=== PATIENT | female | born 1965 | race African-American/Black ===

== ENCOUNTER 2017-08-23 18:27 | Observation (INO) | payer OTHER ==
[2017-08-23 19:14] LABS: #Eosinphils 0.1 thou/uL (0.0-0.7); #Lymphocytes 2.8 thou/uL (1.20-3.40); #Monocytes 0.4 thou/uL (0.11-0.59); #Neutrophils 2.6 thou/uL (1.40-6.50); %Basophils 0.8 % (0.0-1.0); %Lymphocytes 47.5 % (21.0-51.0); %Monocytes 6.3 % (0.0-10.0); Hematocrit 44.7 % (36.0-47.0); Mean Platelet Volume 6.7 fL (7.4-10.4); Red Blood Cell (RBC) Count 4.49 mill/uL (4.20-5.40); White Blood Cell (WBC) Count 5.9 thou/uL (4.8-10.8)
[2017-08-23 19:34] LABS: ALT (SGPT) 10 U/L (8-55); AST (SGOT) 11 U/L (5-34); Alkaline Phosphatase 86 U/L (40-150); Anion Gap 14 mmol/L (10-20); BUN (Urea Nitrogen) 13 mg/dL (9.8-20.1); Bilirubin, Total 0.4 mg/dL (0.2-1.2); CK (CPK) 64 U/L (29-168); Calc. Creatinine Clearance 0 mL/min (70-130); Calcium 9.5 mg/dL (7.8-10.44); Carbon Dioxide 23 mmol/L (22-29); Chloride 106 mmol/L (98-107); Estimated GFR-MDRD 90; Globulin 3.5 g/dL (2.4-3.5); Lipase 17 U/L (8-78); Protein, Total 7.3 g/dL (6.0-8.3)
[2017-08-23 19:38] LABS: Troponin I Less than 0.010 ng/mL (< 0.028)
--- NOTE | 2017-08-23 19:44 | RAD ---
PORTABLE UPRIGHT FRONTAL CHEST RADIOGRAPH: Date: 08/23/17 COMPARISON: 04/18/15. HISTORY: Chest, back, and arm pain. FINDINGS: Lungs are clear. Heart and mediastinal contours unremarkable. IMPRESSION: No acute findings. POS: [facility]
[2017-08-23] MEDS ORDERED: Ketorolac Tromethamine 30 MG/ML VIAL ONE (21:26)
--- NOTE | 2017-08-23 21:42 | RAD ---
3 VIEWS RIGHT SHOULDER: Date: 08/23/17 COMPARISON: 06/03/17. HISTORY: Pain. FINDINGS: Subcentimeter calcific densities are seen adjacent to the greater tuberosity, which may signify calci fic tendinosis or the sequelae of prior trauma. There is degenerative change involving the right AC j oint. No acute fracture or dislocation is seen. Findings are stable when compared to 06/03/17. IMPRESSION: Chronic findings as described above. No acute osseous abnormality noted. POS: [facility]
[2017-08-23 22:20] LABS: Troponin I Less than 0.010 ng/mL (< 0.028)
[2017-08-23] MEDS ORDERED: Acetaminophen 325 MG TAB PO PRN (23:20)
[2017-08-23 23:26] VITALS: BMI 35.7
[2017-08-23] MEDS ORDERED: Aspirin 325 MG TAB PO SCH (23:30)
[2017-08-23] MEDS ORDERED: Ketorolac Tromethamine 30 MG/ML VIAL IVP PRN (23:36)
[2017-08-23] MEDS ORDERED: HYDROcodone/Acetaminophen 5/325 mg Tablet PO PRN (23:36)
[2017-08-23] MEDS ORDERED: Cyclobenzaprine 10 MG TAB PO PRN (23:36)
[2017-08-23] MEDS ORDERED: hydrALAZINE 20 MG/ML VIAL SLOW IVP PRN (23:36)
[2017-08-24 01:25] LABS: Troponin I Less than 0.010 ng/mL (< 0.028)
[2017-08-24] MEDS ORDERED: Acetaminophen 325 MG TAB PO PRN (01:56)
[2017-08-24] MEDS ORDERED: Ondansetron HCl/PF 4 MG/2 ML Vial IVP PRN (01:56)
[2017-08-24] MEDS ORDERED: Ondansetron ODT 4 MG TAB PO PRN (01:56)
[2017-08-24] MEDS ORDERED: Milk Of Magnesia 30 ML UDCUP PO PRN (01:56)
[2017-08-24] MEDS ORDERED: Senokot 8.6 MG TAB PO PRN (01:56)
[2017-08-24] MEDS ORDERED: Nitroglycerin 0.4 MG TAB (25 Tab Bottle) PO PRN (01:56)
[2017-08-24] MEDS ORDERED: Labetalol HCl 100 MG/20 ML VIAL SLOW IVP PRN (01:59)
--- NOTE | 2017-08-24 03:29 | HP ---
DATE OF ADMISSION: 08/23/2017 The patient was seen and examined on 08/23/2017. PRIMARY CARE PHYSICIAN: Naima Santoyo. CHIEF COMPLAINT: Chest discomfort with right shoulder pain. HISTORY OF PRESENT ILLNESS: The patient is a 52-year-old -[place] female with ongoing tobacc o dependence, presented to the emergency room with chest discomfort. 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 Earlier today, patient had sudden onset of left- sided chest pain radiating to her right shoulder. The pain was squeezing pressure-like, associated w ith lightheadedness. At the same time, she started developing right shoulder pain that was moderate to severe in intensity, worse with movement. She denies any vomiting, diaphoresis, loss of conscious ness, heartburn, or dyspepsia. She had some cough without significant production. In the emergency room, initial vital signs showed temperature 98, respirations 20, pulse of 88, blood pressure 138/86 with O2 saturation 98% on room air. Her EKG showed sinus rhythm with nonspecific ST -T wave changes. She received Toradol in the emergency room. She continues to have significant righ t shoulder pain. Her chest discomfort has somewhat improved. PAST MEDICAL HISTORY: Reviewed with the patient and none. PAST SURGICAL HISTORY: Reviewed with the patient and none. ALLERGIES: No known drug allergies. HOME MEDICATIONS: Reviewed with the patient and none. SOCIAL HISTORY: The patient smokes up to half a pack a day. Denies any alcohol or drug use. FAMILY HISTORY: The patient cannot recall any heart disease in her family. REVIEW OF SYSTEMS: The following complete review of systems was negative, unless otherwise mentioned in the HPI or below: Constitutional: Weight loss or gain, ability to conduct usual activities. Skin: Rash, itching. Eyes: Double vision, pain. ENT/Mouth: Nose bleeding, neck stiffness, pain, tenderness. Cardiovascular: Palpitations, dyspnea on exertion, orthopnea. Respiratory: Shortness of breath, wheezing, cough, hemoptysis, fever or night sweats. Gastrointestinal: Poor appetite, abdominal pain, heartburn, nausea, vomiting, constipation, or diarr hea. Genitourinary: Urgency, frequency, dysuria, nocturia. Musculoskeletal: Pain, swelling. Neurologic/Psychiatric: Anxiety, depression. Allergy/Immunologic: Skin rash, bleeding tendency. PHYSICAL EXAMINATION: VITAL SIGNS: As discussed above. GENERAL: A 52-year-old female in mild to moderate distress due to significant shoulder more than casey st pain. HEENT: Head atraumatic, normocephalic. Sclerae are anicteric. Moist mucous membranes. No oral les ion. NECK: Supple, no JVD appreciated. No carotid bruit. LUNGS: Clear to auscultation bilaterally. No wheezing or rales. HEART: S1, S2 present. Regular rate and rhythm. There was some questionable reproducible chest wal l tenderness. The right shoulder was tender on palpation. No significant joint swelling noted. The pain was worse on movement. ABDOMEN: Soft, nontender, bowel sounds present. EXTREMITIES: No edema or calf tenderness. NEUROLOGIC: Grossly nonfocal, moves all four extremities. PSYCHIATRY: Alert, awake, oriented x3. SKIN: Warm and dry. LYMPH NODES: No palpable lymph nodes in the neck. PERIPHERAL VASCULAR: Radial pulses palpable bilaterally. MUSCULOSKELETAL: No joint swelling or tenderness other than mentioned above. LABORATORY FINDINGS: CBC showed WBC 5.9 with hemoglobin 15.2. MCV was 99.7 with MCH 33.9. Chemistr y showed sodium 139, potassium 3.8, chloride 106, bicarbonate 23, BUN 13, creatinine 0.8. Troponins were normal. BNP 14.2. Chest x-ray by my review was negative for infiltrate. Shoulder x-ray showed some degenerative changes involving the right AC joint. EKG by my review as discussed above. IMPRESSION AND PLAN: 1. Chest discomfort, rule out acute coronary syndrome. Her symptoms are concerning for acute france ry syndrome. However, due to significant shoulder pain, patient is declining a stress test at this t jason. We will get an echocardiogram. Her serial cardiac enzymes have been negative. She was advised to follow up with Cardiology as outpatient for possible stress test. 2. Ongoing tobacco abuse. The patient was extensively counseled to quit smoking. 3. Obesity with a BMI 35.7. Lifestyle modification was emphasized. 4. Right shoulder pain, probably musculoskeletal. 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 Orthopedic will be consulted. We will add muscle relaxants and nonsteroidal anti-inflammatory dr kang. We will also add H2 blockers. 5. Chronic kidney disease stage 2. 6. Macrocytosis. The patient was advised to start multivitamins. Folic acid and vitamin B12, check as outpatient is recommended. Primary care physician advised to follow. Plan of care was discussed with the patient in detail. She stated understanding.
--- NOTE | 2017-08-24 07:13 | PDOC.EVN ---
Event Note - Event Note Event Note: I d/w Dr Holley who agrees with NSAIDS/muscle relaxants for now. Outpt follow up for possible MRI if symptoms persists.
[2017-08-24] MEDS ORDERED: Aspirin 81 mg Enteric Coated Tablet PO SCH (09:00)
[2017-08-24] MEDS ORDERED: Aspirin 325 MG TAB PO SCH (09:00)
[2017-08-24] MEDS ORDERED: Famotidine 20 MG TAB PO SCH (09:00)
[2017-08-24] MEDS ORDERED: Docusate 100 MG CAP PO SCH (09:00)
[2017-08-24 11:37] VITALS: BP 102/60; TEMP 97.9
--- NOTE | 2017-08-24 14:17 | DIS ---
DATE OF ADMISSION: 08/23/2017 DATE OF DISCHARGE: 08/24/2017 DISCHARGE DIAGNOSES: 1. Right shoulder pain, likely rotator cuff strain. 2. Tobacco use. CONSULTATIONS: None. PERTINENT LABORATORY DATA AND X-RAY FINDINGS: Complete metabolic profile within normal limits. Trop onin I negative x3. BNP 14.2, total cholesterol 147, triglycerides 105, HDL 43, LDL 83, lipase 17. CBC showed a white blood cell count of 5.9, hemoglobin 15, hematocrit 45, MCV 99.7, platelet count 35 5. Portable chest x-ray dated 08/23/2017 showed no acute cardiopulmonary process. Three views of th e right shoulder dated 08/23/2017 showed chronic changes without acute process. HOSPITAL COURSE: Patient was placed on observation status on the telemetry unit after initially pres enting with questionable chest discomfort and right shoulder pain. Clinically, patient with limited mobility of the right shoulder girdle worse with movement or range of motion testing. Radiographs of the right shoulder showed mild chronic degenerative changes without acute process. The patient was given pain control with [place] and Flexeril with mild relief of her symptoms. No current evidence to suggest acute coronary syndrome or cardiac etiology of shoulder discomfort. Current recommendations are for outpatient followup and potential orthopedic evaluation if symptoms persist. Overall, the ady mcgee remained clinically stable throughout the hospital course and ready for discharge on 08/24/2017 . DISCHARGE MEDICATIONS: Ibuprofen 800 mg 1 tab p.o. t.i.d. p.r.n. pain, #30. FOLLOWUP: Patient will follow up with her primary care provider at [facility] withdaly n 7 days of discharge. CONDITION ON DISCHARGE: Stable. ACTIVITY: Ad vanessa. DIET: Heart healthy. CODE STATUS: FULL. DISPOSITION: Home, 08/24/2017.
== END 2017-08-24 15:21 | disposition home or self-care (01) ==
LOC: ERS 18:27 → 2SW 21:32
PROVIDERS: ADMIT Internal Medicine; ATTEND Internal Medicine
DX: M25.511 Pain in right shoulder (principal); F17.210 Nicotine dependence, cigarettes, uncomplicated; R07.89 Other chest pain; N18.2 Chronic kidney disease, stage 2 (mild); D75.89 Other specified diseases of blood and blood-forming organs; E66.9 Obesity, unspecified; Z68.35 Body mass index [BMI] 35.0-35.9, adult
CPT/HCPCS: 36415; 71010; 80053; 80061; 82550; 82553; 83690; 83880; 84484; 85025; 93005; 93306; 96374; G0378; J1885

== ENCOUNTER 2018-10-04 16:07 | Emergency (ER) | payer OTHER ==
[2018-10-04 16:49] LABS: #Eosinphils 0.3 thou/uL (0.0-0.7); #Lymphocytes 0.8 thou/uL (1.20-3.40); #Monocytes 0.4 thou/uL (0.11-0.59); #Neutrophils 5.6 thou/uL (1.40-6.50); %Basophils 0.2 % (0.0-1.0); %Eosinophils 3.6 % (0.0-10.0); %Monocytes 5.5 % (0.0-10.0); %Neutrophils 79.7 % (42.0-75.0); Hemoglobin 16.1 g/dL (12.0-16.0); Mean Corpuscular HGB CONC 32.7 g/dL (32.0-36.0); Mean Corpuscular Hemoglobin 32.2 pg (27.0-31.0); Mean Corpuscular Volume 98.6 fL (78.0-98.0); Mean Platelet Volume 7.3 fL (7.4-10.4); Platelet Count 288 thou/uL (130-400); RBC Distribution Width 11.5 % (11.5-14.5); White Blood Cell (WBC) Count 7.1 thou/uL (4.8-10.8)
[2018-10-04 17:00] LABS: ALT (SGPT) 13 U/L (8-55); AST (SGOT) 13 U/L (5-34); Albumin 4.4 g/dL (3.5-5.0); Alkaline Phosphatase 91 U/L (40-150); Anion Gap 14 mmol/L (10-20); BUN (Urea Nitrogen) 12 mg/dL (9.8-20.1); Bilirubin, Total 0.9 mg/dL (0.2-1.2); Calc. Creatinine Clearance 0 mL/min (70-130); Calcium 10.1 mg/dL (7.8-10.44); Carbon Dioxide 23 mmol/L (22-29); Chloride 106 mmol/L (98-107); Estimated GFR-MDRD 82; Globulin 3.5 g/dL (2.4-3.5); Glucose 98 mg/dL (70-105); Lipase 13 U/L (8-78); Protein, Total 7.9 g/dL (6.0-8.3); Sodium 139 mmol/L (136-145)
[2018-10-04 18:40] LABS: Bilirubin Small (Negative); Blood, Urine Trace (Negative); Clarity CLEAR (Clear); Glucose, Urine (Dipstick) Negative (Negative); Leukocyte Negative (Negative); Nitrite Negative (Negative); Protein, Urine (Dipstick) Negative (Neg-Trace); Specific Gravity, Urine 1.031 (1.002-1.036); Urobilinogen 0.2 mg/dL (0.2-1.0)
[2018-10-04 18:43] LABS: Hyaline Casts/LPF 0-3 HYALINE CAST LPF (0-3 Hyaline); Pathc Cast-AUWi Flag 0.29 (0-2.49); WBC/HPF 0-3 HPF (0-3)
[2018-10-04 18:58] LABS: Bacteria/HPF 1+ HPF (None Seen); RBC/HPF 0-3 HPF (0-3)
[2018-10-04] MEDS ORDERED: Ketorolac Tromethamine 30 MG/ML VIAL ONE (19:14)
[2018-10-04] MEDS ORDERED: Ondansetron PF 4 MG/2 ML Vial ONE (19:14)
== END 2018-10-04 21:15 | disposition home or self-care (01) ==
LOC: ERS 16:07
DX: E86.0 Dehydration (principal); F17.210 Nicotine dependence, cigarettes, uncomplicated
CPT/HCPCS: 36415; 80053; 81003; 81015; 82274; 83690; 85025; 93005; 96361; 96372; 96374; J1885; J2405

== ENCOUNTER 2019-03-11 21:00 | Emergency (ER) | payer OTHER ==
[2019-03-11] MEDS ORDERED: Ketorolac Tromethamine 30 MG/ML VIAL ONE (22:39)
--- NOTE | 2019-03-11 23:05 | RAD ---
Exam: Right hip 2 views: HISTORY: Right hip pain FINDINGS: Small area of ossification adjacent to the greater trochanter possibly a prominent enthesophyte. No a cute fracture or dislocation. IMPRESSION: No acute fracture or dislocation. Area of ossification adjacent to the greater trochanter, nonspecifi c.
== END 2019-03-11 23:38 | disposition home or self-care (01) ==
LOC: ERS 21:00
DX: M54.31 Sciatica, right side (principal); F17.210 Nicotine dependence, cigarettes, uncomplicated
CPT/HCPCS: 96372; J1885

== ENCOUNTER 2019-05-21 09:11 | Emergency (ER) | payer OTHER ==
--- NOTE | 2019-05-21 09:58 | RAD ---
EXAM: XR Hip Lt 2-3 View PROVIDED CLINICAL HISTORY: Pain FINDINGS: There is no evidence for fracture or other acute osseous abnormality. Alignment appears anatomic. Arlette nt spaces appear preserved. IMPRESSION: No evidence for an acute osseous abnormality. If there is persistent clinical concern, conservative m anagement and follow-up imaging advised.
[2019-05-21] MEDS ORDERED: Ketorolac Tromethamine 30 MG/ML VIAL ONE (10:12)
[2019-05-21] MEDS ORDERED: Acetaminophen 500 MG TAB ONE (10:12)
== END 2019-05-21 10:30 | disposition home or self-care (01) ==
LOC: ERS 09:11
DX: M25.552 Pain in left hip (principal); F17.210 Nicotine dependence, cigarettes, uncomplicated; F41.9 Anxiety disorder, unspecified
CPT/HCPCS: 96372; J1885

== ENCOUNTER 2019-07-02 18:48 | Emergency (ER) | payer OTHER ==
[2019-07-02] MEDS ORDERED: Gentamicin 80 MG/2 ML VIAL ONE (19:31)
[2019-07-02] MEDS ORDERED: Gentamicin Ophth Soln 0.3% 5 ml Bottle ONE (19:34)
== END 2019-07-02 19:43 | disposition home or self-care (01) ==
LOC: ERS 18:48
DX: H10.9 Unspecified conjunctivitis (principal); F17.210 Nicotine dependence, cigarettes, uncomplicated
CPT/HCPCS: 99283; J1580

== ENCOUNTER 2019-11-23 05:26 | Emergency (ER) | payer OTHER, SELFPAY ==
[2019-11-23] MEDS ORDERED: Ketorolac Tromethamine 30 MG/ML VIAL ONE (06:47)
--- NOTE | 2019-11-23 07:34 | RAD ---
Left shoulder 3 views: 11/23/2019 COMPARISON: None HISTORY: Pain FINDINGS: Mild degenerative change of the left acromioclavicular joint. No displaced fracture or evid ence of dislocation. Focal areas of amorphous calcification are noted adjacent to the left humeral head suggesting calcific tendinosis. IMPRESSION: Findings suggesting calcific tendinosis. No acute fracture or dislocation seen.
== END 2019-11-23 07:31 | disposition home or self-care (01) ==
LOC: ERS 05:26
DX: M75.32 Calcific tendinitis of left shoulder (principal); M54.32 Sciatica, left side; M19.90 Unspecified osteoarthritis, unspecified site; F41.9 Anxiety disorder, unspecified; F17.210 Nicotine dependence, cigarettes, uncomplicated
CPT/HCPCS: 96372; J1885

== ENCOUNTER 2020-05-15 16:15 | Emergency (ER) | payer SELFPAY | END 2020-05-15 16:50 | disposition home or self-care (01) | LOC: ERS 16:15 | DX: K04.7 Periapical abscess without sinus (principal); K02.9 Dental caries, unspecified; F41.9 Anxiety disorder, unspecified; F17.210 Nicotine dependence, cigarettes, uncomplicated | CPT/HCPCS: 99282 ==

== ENCOUNTER 2020-05-18 05:51 | Emergency (ER) | payer SELFPAY | END 2020-05-18 06:21 | disposition home or self-care (01) | LOC: ERS 05:51 | DX: K02.9 Dental caries, unspecified (principal); F17.210 Nicotine dependence, cigarettes, uncomplicated | CPT/HCPCS: 99282 ==

== ENCOUNTER 2020-10-08 11:55 | Emergency (ER) | payer OTHER, SELFPAY ==
--- NOTE | 2020-10-08 12:44 | RAD ---
Left hand 3 views HISTORY: Hand pain. Mild osteophytosis, subchondral sclerosis, and joint space narrowing of the distal interphalangeal bette ints and first carpometacarpal joint. No acute fracture, dislocation, or aggressive osseous erosions. IMPRESSION : Very mild osteoarthritic changes. No acute osseous abnormalities are demonstrated.
[2020-10-08] MEDS ORDERED: Ketorolac Tromethamine 30 MG/ML VIAL ONE (12:55)
== END 2020-10-08 13:21 | disposition home or self-care (01) ==
LOC: ERS 11:55
DX: M65.4 Radial styloid tenosynovitis [de Quervain] (principal); F17.210 Nicotine dependence, cigarettes, uncomplicated
CPT/HCPCS: 29125; 96372; J1885

== ENCOUNTER 2021-12-16 05:50 | Emergency (ER) | payer OTHER ==
[2021-12-16] MEDS ORDERED: Ketorolac Tromethamine 30 MG/ML VIAL ONE (06:34)
== END 2021-12-16 09:52 | disposition home or self-care (01) ==
LOC: ERS 05:50
DX: M79.605 Pain in left leg (principal); F17.210 Nicotine dependence, cigarettes, uncomplicated
CPT/HCPCS: 96372; J1885

== ENCOUNTER 2023-10-20 17:28 | Emergency (ER) | payer OTHER ==
[2023-10-20] MEDS ORDERED: Proparacaine 0.5% Opth 15 ML BOT ONE (19:03)
[2023-10-20] MEDS ORDERED: Fluorescein Opthalmic Strip ONE (19:05)
== END 2023-10-20 19:37 | disposition home or self-care (01) ==
LOC: ERS 17:28
DX: H00.015 Hordeolum externum left lower eyelid (principal); H10.9 Unspecified conjunctivitis; F17.210 Nicotine dependence, cigarettes, uncomplicated
CPT/HCPCS: 99283

== ENCOUNTER 2024-08-08 19:29 | Emergency (ER) | payer OTHER ==
[2024-08-08] MEDS ORDERED: Lidocaine 2% 6 ML (Jelly) SYR ONE (19:58)
== END 2024-08-08 20:19 | disposition home or self-care (01) ==
LOC: ERS 19:29
DX: K04.7 Periapical abscess without sinus (principal); F17.210 Nicotine dependence, cigarettes, uncomplicated
CPT/HCPCS: 99282

== ENCOUNTER 2024-08-09 17:08 | Emergency (ER) | payer OTHER, SELFPAY ==
[2024-08-09] MEDS ORDERED: HYDROcodone/Acetaminophen 5/325 mg Tablet ONE (18:04)
== END 2024-08-09 18:20 | disposition home or self-care (01) ==
LOC: ERS 17:08
DX: K08.89 Other specified disorders of teeth and supporting structures (principal); K02.9 Dental caries, unspecified; F17.210 Nicotine dependence, cigarettes, uncomplicated
CPT/HCPCS: 99282

== ENCOUNTER 2024-10-07 07:24 | Emergency (ER) | payer SELFPAY ==
[2024-10-07] MEDS ORDERED: Ketorolac Tromethamine 30 MG (1 mL) VIAL ONE ×2 (08:33→08:36)
== END 2024-10-07 08:54 | disposition home or self-care (01) ==
LOC: ERS 07:24
DX: M17.12 Unilateral primary osteoarthritis, left knee (principal); F17.210 Nicotine dependence, cigarettes, uncomplicated
CPT/HCPCS: 96372; 99283; J1885